=== PATIENT | male | born 1990 | race Caucasian/White ===

== ENCOUNTER 2017-05-09 04:54 | Emergency (ER) | payer SELFPAY ==
[~2017-05-09] VITALS: Ht 182.9 cm; Wt 82.0 kg
[~2017-05-09 04:54] MED LIST: BACT800T5 PO; CEPH500C3 PO; CETI10 PO; CLIN150 PO; CLIN1CAP5 PO; PRED20 PO; SULF-154 PO
[2017-05-09 05:02] VITALS: BP 133/84; PULSE 127; RESP 18; TEMP 98.1; O2SAT 95
[2017-05-09 06:23] LABS: AUTOMATED NEUTROPHIL # 11.4 TH/MM3 (1.8-7.7); BASOPHIL % 0.3 % (0.0-2.0); EOSINOPHIL # 0.2 TH/MM3 (0-0.4); EOSINOPHIL % 1.3 % (0.0-4.0); HEMATOCRIT 43.8 % (39.0-51.0); HEMO FLAGS DIFF FINAL; LYMPH % 10.5 % (9.0-44.0); LYMPHOCYTE # 1.5 TH/MM3 (1.0-4.8); MEAN CELL VOLUME 87.3 FL (80.0-100.0); MEAN CORPUSCULAR HEMOGLOBIN 30.4 PG (27.0-34.0); MEAN CORPUSCULAR HGB CONC 34.8 % (32.0-36.0); MONO % 6.8 % (0.0-8.0); NEUT % 81.1 % (16.0-70.0); PLATELET COUNT 281 TH/MM3 (150-450); RED BLOOD COUNT 5.02 MIL/MM3 (4.50-5.90); RED CELL DISTRIBUTION WIDTH 12.6 % (11.6-17.2)
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
[2017-05-09 06:39] LABS: ALT (GPT) 26 U/L (12-78)
[2017-05-09 06:41] LABS: ALKALINE PHOSPHATASE 78 U/L (45-117); TOTAL BILIRUBIN ADULT 1.1 MG/DL (0.2-1.0)
[2017-05-09 06:55] LABS: ANION GAP 12 MEQ/L (5-15); AST (GOT) 20 U/L (15-37); BICARBONATE 22.9 MEQ/L (21.0-32.0); CHLORIDE 104 MEQ/L (98-107); GLOMERULAR FILTRATION RATE 55 ML/MIN (>89); POTASSIUM 4.3 MEQ/L (3.5-5.1); SODIUM (NA) 139 MEQ/L (136-145)
--- NOTE | 2017-05-09 06:55 | RADRPT ---
EXAM DATE/TIME: 05/09/2017 05:54 [facility] COMPARISON: No previous studies available for comparison. INDICATIONS : Chest pain and upper abdominal pain MEDICAL HISTORY : Hypertension. SURGICAL HISTORY : None. ENCOUNTER: Initial ACUITY: 1 day PAIN SCORE: 7/10 LOCATION: Bilateral chest FINDINGS: A single view of the chest demonstrates the lungs to be symmetrically aerated without evidence of mas s, infiltrate or effusion. The cardiomediastinal contours are unremarkable. Osseous structures are intact. CONCLUSION: No acute disease. Jay Jay James MD on May 09, 2017 at 6:53 Board Certified Radiologist. This report was verified electronically.
[2017-05-09 06:57] LABS: ACETAMINOPHEN LESS THAN 2.0 MCG/ML (10.0-30.0); ALCOHOL LESS THAN 3 MG/DL (0-5); BLOOD UREA NITROGEN 16 MG/DL (7-18)
[2017-05-09 09:47] VITALS: BP 111/74; PULSE 99; RESP 16; TEMP 97.4; O2SAT 97
--- NOTE | 2017-05-09 10:53 | PD ---
Physical Exam Date Seen by Provider: May 09, 2017 Time Seen by Provider: 07:00 Narrative Patient initially seen by Dr. Jones, please see previous notes for further details. He is signed out to me at 7 AM to sleep it off after taking amphetamines. He denies any homicidal or suicidal ideation although he does appear to be having an acute intoxication. He is having some bizarre behavior, that he had talked to his sister and [id number] over the phone but it is unclear whether they did talk or not, states that he was told to go outside to wait for his [id number] but his [id number] states that does not the case. At this point, psychiatry has been asked to evaluate the patient as well. After evaluation, psych does not think that there is any acute issues and states that the patient likely has some underlying effects from the drug use. 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 He should return for any worsening in symptoms. Follow-up with primary care physician on outside and refrain from using drugs. We have discussed both issues with the patient he states understanding. Data Data Last Documented VS Vital Signs Date Time Temp Pulse Resp B/P (MAP) Pulse Ox O2 Delivery O2 Flow Rate FiO2 05/09/17 09:47 97.4 99 16 111/74 (86) 97 Room Air Orders Orders Electrocardiogram (05/09/17 05:42) Basic Metabolic Panel (Bmp) (05/09/17 05:42) Complete Blood Count With Diff (05/09/17 05:42) Comprehensive Metabolic Panel (05/09/17 05:42) Chest, Single Ap (05/09/17 05:42) Iv Access Insert/Monitor (05/09/17 05:42) Ecg Monitoring (05/09/17 05:42) Drug Screen, Random Urine (05/09/17 05:42) Alcohol (Ethanol) (05/09/17 05:42) Salicylates (Aspirin) (05/09/17 05:42) Tylenol (Acetaminophen) (05/09/17 05:42) Psych Screen (05/09/17 09:19) Labs Laboratory Tests Test 05/09/17 05:30 White Blood Count 14.0 TH/MM3 Red Blood Count 5.02 MIL/MM3 Hemoglobin 15.2 GM/DL Hematocrit 43.8 % Mean Corpuscular Volume 87.3 FL Mean Corpuscular Hemoglobin 30.4 PG Mean Corpuscular Hemoglobin Concent 34.8 % Red Cell Distribution Width 12.6 % Platelet Count 281 TH/MM3 Mean Platelet Volume 8.4 FL Neutrophils (%) (Auto) 81.1 % Lymphocytes (%) (Auto) 10.5 % Monocytes (%) (Auto) 6.8 % Eosinophils (%) (Auto) 1.3 % Basophils (%) (Auto) 0.3 % Neutrophils # (Auto) 11.4 TH/MM3 Lymphocytes # (Auto) 1.5 TH/MM3 Monocytes # (Auto) 1.0 TH/MM3 Eosinophils # (Auto) 0.2 TH/MM3 Basophils # (Auto) 0.0 TH/MM3 CBC Comment DIFF FINAL Differential Comment Blood Urea Nitrogen 16 MG/DL Creatinine 1.51 MG/DL Random Glucose 137 MG/DL Total Protein 8.2 GM/DL Albumin 4.6 GM/DL Calcium Level 9.6 MG/DL Alkaline Phosphatase 78 U/L Aspartate Amino Transf (AST/SGOT) 20 U/L Alanine Aminotransferase (ALT/SGPT) 26 U/L Total Bilirubin 1.1 MG/DL Sodium Level 139 MEQ/L Potassium Level 4.3 MEQ/L Chloride Level 104 MEQ/L Carbon Dioxide Level 22.9 MEQ/L Anion Gap 12 MEQ/L Estimat Glomerular Filtration Rate 55 ML/MIN Salicylates Level LESS THAN 1.7 MG/DL Urine Opiates Screen NEG Acetaminophen Level LESS THAN 2.0 MCG/ML Urine Barbiturates Screen NEG Urine Amphetamines Screen POS Urine Benzodiazepines Screen NEG Urine Cocaine Screen NEG Urine Cannabinoids Screen NEG Ethyl Alcohol Level LESS THAN 3 MG/DL [facility] Medical Record Reviewed: Yes Supervised Visit with YUMIKO: No Diagnosis Primary Impression: Delirium Additional Impression: Substance use disorder Scripts No Active Prescriptions or Reported Meds Disposition: 01 DISCHARGE HOME Condition: Stable Manish Duncan MD May 09, 2017 10:52
--- NOTE | 2017-05-09 13:14 | EKG ---
Date Performed: 05/09/2017 Time Performed: 05:07:54 PTAGE: 27 years EKG: ATRIAL FLUTTER/TACHYCARDIA WITH RAPID VENTRICULAR RESPONSE ABNORMAL RHYTHM ECG INTERPRETATI ON BASED ON A DEFAULT AGE OF 38 YEARS NO PREVIOUS TRACING DOCTOR: Fiorella Roy Interpretating Date/Time 05/09/2017 13:13:02
== END 2017-05-09 11:07 | disposition home or self-care (01) ==
LOC: NEPE 04:54
DX: R41.0 Disorientation, unspecified (principal); F19.90 Other psychoactive substance use, unspecified, uncomplicated; I10 Essential (primary) hypertension; F17.200 Nicotine dependence, unspecified, uncomplicated
CPT/HCPCS: 71010; 80053; 80307; 85025; 93005; 99285

== ENCOUNTER 2017-08-13 03:54 | Emergency (ER) | payer SELFPAY ==
[~2017-08-13] VITALS: Ht 182.9 cm; Wt 65.0 kg
[2017-08-13 04:06] VITALS: BP 118/82; PULSE 109; RESP 24; TEMP 98.5; O2SAT 98
[2017-08-13] MEDS ORDERED: LORazepam 2 MG/ML VIAL IM ONE (04:15)
[2017-08-13] MEDS ORDERED: HALOPERIDOL LACTATE 5 MG/ML AMP IM ONE (04:15)
--- NOTE | 2017-08-13 04:39 | PD ---
HPI Chief Complaint: Psychiatric Symptoms Time Seen by Provider: 04:11 Travel History International Travel<30 days: No Contact w/Intl Traveler<30days: No Traveled to known affect area: No History of Present Illness HPI 27-year-old white male presents to emergency department on a voluntary basis. The patient presents to emergency department at the recommendation of family. The patient has history of substance abuse. He has been acting bizarre at home. The patient appears to be acutely psychotic here in the ER. He mumbles about the police adding charges to him and he will be going to [facility]. The patient is very agitated and cannot focus. Review of the medical record indicates a similar presentation earlier in the year. The patient here denies any suicidal or homicidal ideation. He admits to polysubstance abuse. PFSH Past Medical History Narrative Medical Polysubstance abuse, substance induced psychosis Diminished Hearing: No Hypertension: Yes Tetanus Vaccination: Unknown Past Surgical History Surgical History: Unable to Obtain Social History Alcohol Use: Yes (OCCASIONALLY) Tobacco Use: Yes (1 PPD) Substance Use: Yes Allergies-Medications (Allergen,Severity, Reaction): Coded Allergies: No Known Allergies (Verified Adverse Reaction, Unknown, 08/13/17) Reported Meds & Prescriptions Reported Meds & Active Scripts Active No Active Prescriptions or Reported Medications Review of Systems ROS Limitations: Psychotic Physical Exam Narrative GENERAL: Well-nourished, well-developed patient. SKIN: Warm and dry. HEAD: Normocephalic and atraumatic. EYES: No scleral icterus. No injection or drainage. ENT: No nasal drainage noted. Mucous membranes pink. Airway patent. NECK: Supple, trachea midline. Moves head freely without obvious discomfort. CARDIOVASCULAR: Regular rate and rhythm without murmurs, gallops, or rubs. RESPIRATORY: Breath sounds equal bilaterally. No accessory muscle use. GASTROINTESTINAL: Abdomen soft, non-tender, nondistended. EXTREMITIES: No cyanosis or edema. BACK: Nontender without obvious deformity. No CVA tenderness. NEURO: Patient is alert and oriented. no sensorimotor deficits. Nonfocal. Normal speech. PSYCH: Patient is acutely psychotic. Patient admits to auditory and visual hallucinations. Data Data Last Documented VS Vital Signs Date Time Temp Pulse Resp B/P (MAP) Pulse Ox O2 Delivery O2 Flow Rate FiO2 08/13/17 04:06 98.5 109 24 118/82 (94) 98 Orders Orders Complete Blood Count With Diff (08/13/17 04:11) Comprehensive Metabolic Panel (08/13/17 04:11) Thyroid Stimulating Hormone (08/13/17 04:11) Psych Screen (08/13/17 04:11) Haloperidol Inj (Haldol Inj) (08/13/17 04:15) Lorazepam Inj (Ativan Inj) (08/13/17 04:15) Drug Screen, Random Urine (08/13/17 04:11) Alcohol (Ethanol) (08/13/17 04:11) Labs Laboratory Tests Test 08/13/17 05:15 White Blood Count 8.0 TH/MM3 Red Blood Count 5.22 MIL/MM3 Hemoglobin 15.5 GM/DL Hematocrit 45.1 % Mean Corpuscular Volume 86.4 FL Mean Corpuscular Hemoglobin 29.7 PG Mean Corpuscular Hemoglobin Concent 34.4 % Red Cell Distribution Width 13.1 % Platelet Count 280 TH/MM3 Mean Platelet Volume 7.8 FL Neutrophils (%) (Auto) 67.1 % Lymphocytes (%) (Auto) 23.1 % Monocytes (%) (Auto) 8.9 % Eosinophils (%) (Auto) 0.6 % Basophils (%) (Auto) 0.3 % Neutrophils # (Auto) 5.4 TH/MM3 Lymphocytes # (Auto) 1.9 TH/MM3 Monocytes # (Auto) 0.7 TH/MM3 Eosinophils # (Auto) 0.0 TH/MM3 Basophils # (Auto) 0.0 TH/MM3 CBC Comment DIFF FINAL Differential Comment Blood Urea Nitrogen 14 MG/DL Creatinine 1.14 MG/DL Random Glucose 88 MG/DL Total Protein 7.6 GM/DL Albumin 4.5 GM/DL Calcium Level 8.9 MG/DL Alkaline Phosphatase 90 U/L Aspartate Amino Transf (AST/SGOT) 27 U/L Alanine Aminotransferase (ALT/SGPT) 20 U/L Total Bilirubin 1.1 MG/DL Sodium Level 139 MEQ/L Potassium Level 3.5 MEQ/L Chloride Level 104 MEQ/L Carbon Dioxide Level 27.0 MEQ/L Anion Gap 8 MEQ/L Estimat Glomerular Filtration Rate 76 ML/MIN Thyroid Stimulating Hormone 3rd Gen 1.220 uIU/ML Ethyl Alcohol Level LESS THAN 3 MG/DL MDM Medical Decision Making Medical Screen Exam Complete: Yes Emergency Medical Condition: Yes Medical Record Reviewed: Yes Interpretation(s) Laboratory Tests Test 08/13/17 05:15 White Blood Count 8.0 TH/MM3 Red Blood Count 5.22 MIL/MM3 Hemoglobin 15.5 GM/DL Hematocrit 45.1 % Mean Corpuscular Volume 86.4 FL Mean Corpuscular Hemoglobin 29.7 PG Mean Corpuscular Hemoglobin Concent 34.4 % Red Cell Distribution Width 13.1 % Platelet Count 280 TH/MM3 Mean Platelet Volume 7.8 FL Neutrophils (%) (Auto) 67.1 % Lymphocytes (%) (Auto) 23.1 % Monocytes (%) (Auto) 8.9 % Eosinophils (%) (Auto) 0.6 % Basophils (%) (Auto) 0.3 % Neutrophils # (Auto) 5.4 TH/MM3 Lymphocytes # (Auto) 1.9 TH/MM3 Monocytes # (Auto) 0.7 TH/MM3 Eosinophils # (Auto) 0.0 TH/MM3 Basophils # (Auto) 0.0 TH/MM3 CBC Comment DIFF FINAL Differential Comment Blood Urea Nitrogen 14 MG/DL Creatinine 1.14 MG/DL Random Glucose 88 MG/DL Total Protein 7.6 GM/DL Albumin 4.5 GM/DL Calcium Level 8.9 MG/DL Alkaline Phosphatase 90 U/L Aspartate Amino Transf (AST/SGOT) 27 U/L Alanine Aminotransferase (ALT/SGPT) 20 U/L Total Bilirubin 1.1 MG/DL Sodium Level 139 MEQ/L Potassium Level 3.5 MEQ/L Chloride Level 104 MEQ/L Carbon Dioxide Level 27.0 MEQ/L Anion Gap 8 MEQ/L Estimat Glomerular Filtration Rate 76 ML/MIN Thyroid Stimulating Hormone 3rd Gen 1.220 uIU/ML Ethyl Alcohol Level LESS THAN 3 MG/DL Differential Diagnosis MDM: High Differential diagnoses: Schizophrenia, schizoaffective disorder, bipolar, anxiety, depression, adjustment reaction, mood disorder NOS, ODD, depressive disorder NOS, dementia, dementia with agitation, psychosis NOS, substance induced mood disorder, DMDD, Asperger syndrome, infection,electrolyte abnormality, malingering. Narrative Course Mental health screening discussed with the patient. Psychiatric screen ordered. The patient is acutely psychotic. The patient is medicated with Haldol 10 mg and Ativan 2 mg IM. Once the patient settles down we will draw his blood and medically clear him for psychiatry in the morning. This is medical clearance for psychiatric admission, substance induced psychosis Diagnosis Primary Impression: Medical clearance for psychiatric admission Additional Impression: Substance-induced psychotic disorder Scripts No Active Prescriptions or Reported Meds Condition: Stable Ulises Nassar Aug 13, 2017 04:38
[2017-08-13 05:35] LABS: AUTOMATED NEUTROPHIL # 5.4 TH/MM3 (1.8-7.7); BASOPHIL % 0.3 % (0.0-2.0); EOSINOPHIL % 0.6 % (0.0-4.0); HEMATOCRIT 45.1 % (39.0-51.0); HEMOGLOBIN 15.5 GM/DL (13.0-17.0); LYMPH % 23.1 % (9.0-44.0); LYMPHOCYTE # 1.9 TH/MM3 (1.0-4.8); MEAN CELL VOLUME 86.4 FL (80.0-100.0); MEAN CORPUSCULAR HEMOGLOBIN 29.7 PG (27.0-34.0); MEAN CORPUSCULAR HGB CONC 34.4 % (32.0-36.0); MEAN PLATELET VOLUME 7.8 FL (7.0-11.0); MONO % 8.9 % (0.0-8.0); MONOCYTE # 0.7 TH/MM3 (0-0.9); NEUT % 67.1 % (16.0-70.0); PLATELET COUNT 280 TH/MM3 (150-450); RED BLOOD COUNT 5.22 MIL/MM3 (4.50-5.90); RED CELL DISTRIBUTION WIDTH 13.1 % (11.6-17.2)
[2017-08-13 05:59] LABS: ALBUMIN 4.5 GM/DL (3.4-5.0); AST (GOT) 27 U/L (15-37); BLOOD UREA NITROGEN 14 MG/DL (7-18); CALCIUM 8.9 MG/DL (8.5-10.1); CHLORIDE 104 MEQ/L (98-107); CREATININE 1.14 MG/DL (0.60-1.30); GLOMERULAR FILTRATION RATE 76 ML/MIN (>89); GLUCOSE,RANDOM 88 MG/DL (74-106); SODIUM (NA) 139 MEQ/L (136-145)
[2017-08-13 06:08] LABS: ALKALINE PHOSPHATASE 90 U/L (45-117); ALT (GPT) 20 U/L (12-78); TOTAL BILIRUBIN ADULT 1.1 MG/DL (0.2-1.0); TOTAL PROTEIN 7.6 GM/DL (6.4-8.2)
--- NOTE | 2017-08-13 09:35 | PD ---
Physical Exam Time Seen by Provider: 09:[address] Reid has evaluated the patient and cleared the patient for discharge. Data Data Last Documented VS Vital Signs Date Time Temp Pulse Resp B/P (MAP) Pulse Ox O2 Delivery O2 Flow Rate FiO2 08/13/17 04:06 98.5 109 24 118/82 (94) 98 Orders Orders Complete Blood Count With Diff (08/13/17 04:11) Comprehensive Metabolic Panel (08/13/17 04:11) Thyroid Stimulating Hormone (08/13/17 04:11) Psych Screen (08/13/17 04:11) Haloperidol Inj (Haldol Inj) (08/13/17 04:15) Lorazepam Inj (Ativan Inj) (08/13/17 04:15) Drug Screen, Random Urine (08/13/17 04:11) Alcohol (Ethanol) (08/13/17 04:11) Diet Regular Basic (08/13/17 Breakfast) Labs Laboratory Tests Test 08/13/17 05:15 White Blood Count 8.0 TH/MM3 Red Blood Count 5.22 MIL/MM3 Hemoglobin 15.5 GM/DL Hematocrit 45.1 % Mean Corpuscular Volume 86.4 FL Mean Corpuscular Hemoglobin 29.7 PG Mean Corpuscular Hemoglobin Concent 34.4 % Red Cell Distribution Width 13.1 % Platelet Count 280 TH/MM3 Mean Platelet Volume 7.8 FL Neutrophils (%) (Auto) 67.1 % Lymphocytes (%) (Auto) 23.1 % Monocytes (%) (Auto) 8.9 % Eosinophils (%) (Auto) 0.6 % Basophils (%) (Auto) 0.3 % Neutrophils # (Auto) 5.4 TH/MM3 Lymphocytes # (Auto) 1.9 TH/MM3 Monocytes # (Auto) 0.7 TH/MM3 Eosinophils # (Auto) 0.0 TH/MM3 Basophils # (Auto) 0.0 TH/MM3 CBC Comment DIFF FINAL Differential Comment Blood Urea Nitrogen 14 MG/DL Creatinine 1.14 MG/DL Random Glucose 88 MG/DL Total Protein 7.6 GM/DL Albumin 4.5 GM/DL Calcium Level 8.9 MG/DL Alkaline Phosphatase 90 U/L Aspartate Amino Transf (AST/SGOT) 27 U/L Alanine Aminotransferase (ALT/SGPT) 20 U/L Total Bilirubin 1.1 MG/DL Sodium Level 139 MEQ/L Potassium Level 3.5 MEQ/L Chloride Level 104 MEQ/L Carbon Dioxide Level 27.0 MEQ/L Anion Gap 8 MEQ/L Estimat Glomerular Filtration Rate 76 ML/MIN Thyroid Stimulating Hormone 3rd Gen 1.220 uIU/ML Ethyl Alcohol Level LESS THAN 3 MG/DL MDM Supervised Visit with YUMIKO: No Narrative Course Dr. Reid has evaluated the patient and cleared the patient for discharge. Patient contracts safety. Denies suicidal or homicidal ideations. Patient will be provided community resource packet to [facility] for follow-up. Has friends and family for support. Patient was medically cleared by alternate provider prior to psych screening. Patient has been evaluated by psychiatry and and is now cleared for discharge. Diagnosis Primary Impression: Substance-induced psychotic disorder Referrals: [facility] (Out patient) [facility] Primary Care Physician Psychiatrist [facility] Patient Instructions: General Instructions, Mood Disorders (ED), Polysubstance Abuse (ED) Additional Instruction: Contract safety to your self and others Stop using drugs Follow-up with psychiatry Follow-up with primary care provider Follow-up with Vincent Grady Return to the emergency department immediately with worsening of symptoms Med/Other Pt SpecificInfo: No Change to Meds, No Meds Exist/No RX given Scripts No Active Prescriptions or Reported Meds Disposition: 01 DISCHARGE HOME Condition: Stable Vicki Cosme Aug 13, 2017 09:35
== END 2017-08-13 14:56 | disposition home or self-care (01) ==
LOC: NEPD 03:54 → NEPJ 14:56
DX: F23 Brief psychotic disorder (principal); I10 Essential (primary) hypertension; F17.200 Nicotine dependence, unspecified, uncomplicated
CPT/HCPCS: 80053; 80307; 84443; 85025; 96372; 99284; J1630; J2060